=== PATIENT | female | born 1950 | race Caucasian/White ===

== ENCOUNTER 2018-12-27 20:07 | Emergency (ER) | payer MEDICARE, OTHER ==
--- NOTE | 2018-12-27 20:34 | EDM.PDOC ---
ED HPI GENERAL MEDICAL PROBLEM - General Chief Complaint: Genitourinary Problem Stated Complaint: BACK PAIN Time Seen by Provider: 12/27/18 20:20 Source of Information: Reports: Patient History Limitations: Reports: No Limitations - History of Present Illness INITIAL COMMENTS - FREE TEXT/NARRATIVE: Geovanna comes into [facility] with a 2 month hx of AAKASH and LLQ ain than seems to be progressing over the past 24 hrs. There is some nausea and multiple episodes of vomiting, but no urinary urgency or frequency, no dysuria or visible hematuria. She does have some residual incontinence following prior bladder surgeries. She was seen in fall, yesterday for an abdominal US of the L kidney, and informed the kidney was inflammed, no stones seen, and no meds dispensed. She has had UTIs in the past, but no reported stone disease. She has taken no meds. left flank Pain Score (Numeric/FACES): 8 - Related Data Allergies Allergy/AdvReac Type Severity Reaction Status Date / Time Penicillins Allergy Hives Verified 12/27/18 20:41 Home Meds: Home Meds Diltiazem [Diltiazem ER] 30 mg PO DAILY 12/27/18 [History] FLUoxetine [PROzac] 10 mg PO DAILY 12/27/18 [History] Fluticasone Propionate 2 sprays NS DAILY 12/27/18 [History] Losartan [Cozaar] 25 mg PO DAILY 12/27/18 [History] Lovastatin 20 mg PO DAILY 12/27/18 [History] Mirabegron [Myrbetriq] 50 mg PO DAILY 12/27/18 [History] Past Medical History Genitourinary History: Reports: UTI, Recurrent - Past Surgical History GI Surgical History: Reports: Bariatric Procedure ED ROS GENERAL - Review of Systems Review Of Systems: See Below Constitutional: Reports: No Symptoms HEENT: Reports: No Symptoms Respiratory: Reports: No Symptoms Cardiovascular: Reports: No Symptoms Endocrine: Reports: No Symptoms GI/Abdominal: Reports: Abdominal Pain (LUQ, LLQ ), Nausea : Reports: Incontinence Musculoskeletal: Reports: No Symptoms Skin: Reports: No Symptoms Neurological: Reports: No Symptoms Psychiatric: Reports: No Symptoms Hematologic/Lymphatic: Reports: No Symptoms Immunologic: Reports: No Symptoms ED EXAM, RENAL/ - Physical Exam Exam: See Below Exam Limited By: No Limitations General Appearance: Alert, WD/WN, Mild Distress, Obese Throat/Mouth: Normal Inspection, Normal Lips, Normal Teeth, Normal Gums, Normal Oropharynx, Normal Voice, No Airway Compromise Head: Normocephalic Neck: Normal Inspection, Supple, Non-Tender Respiratory/Chest: Lungs Clear, Normal Breath Sounds, Chest Non-Tender Cardiovascular: Regular Rate, Rhythm, No Murmur GI/Abdominal: Normal Bowel Sounds, Soft, No Organomegaly, No Distention, No Mass , Tender (LUQ<LLQ) (Female) Exam: Deferred Rectal (Female) Exam: Deferred Back Exam: Normal Inspection Extremities: Normal Inspection Neurological: Alert, Oriented, CN II-XII Intact, Normal Gait, No Motor/Sensory Deficits Psychiatric: Normal Affect, Normal Mood Skin Exam: Warm, Dry, Intact, Normal Color, No Rash Lymphatic: No Adenopathy Course - Vital Signs Text/Narrative:: Following assessment, screening labwork was nonspecific for current abdominal sxs. I proceeded with an Abd-Pelvic CT wo contrast: findings included a 6 mm opague stone at the UVJ, with some hydronephrosis and hydroureter present. Flomax 0.4 mg po was administered at time of discharge. Last Recorded V/S: Last Vital Signs Temp 36.6 C 12/27/18 20:35 Pulse 59 L 12/27/18 21:59 Resp 18 12/27/18 21:59 BP 182/80 H 12/27/18 21:59 Pulse Ox 94 L 12/27/18 21:59 - Orders/Labs/Meds Orders: Active Orders 24 hr Category Date Time Status Abdomen Pelvis wo Cont [CT] Stat Exams 12/27/18 22:27 Taken Tamsulosin [Flomax] Med 12/28/18 00:19 Once 0.4 mg PO ONETIME ONE Labs: Laboratory Tests 12/27/18 12/27/18 12/27/18 Range/Units 20:40 20:40 20:40 WBC 11.0 (4.5-12.0) X10-3/uL RBC 4.73 (3.23-5.20) x10(6)uL Hgb 14.3 (11.5-15.5) g/dL Hct 42.9 (30.0-51.3) % MCV 90.7 (80-96) fL MCH 30.2 (27.7-33.6) pg MCHC 33.3 (32.2-35.4) g/dL RDW 12.8 (11.5-15.5) % Plt Count 265 (125-369) X10(3)uL MPV 8.7 (7.4-10.4) fL Neut % (Auto) 86.6 H (46-82) % Lymph % (Auto) 8.8 L (13-37) % [place] % (Auto) 3.7 L (4-12) % Eos % (Auto) 0 L (1.0-5.0) % Baso % (Auto) 1 (0-2) % Neut # (Auto) 9.5 H (1.6-8.3) # Lymph # (Auto) 1.0 (0.6-5.0) # [place] # (Auto) 0.4 (0.0-1.3) # Eos # (Auto) 0.0 (0.0-0.8) # Baso # (Auto) 0.1 (0.0-0.2) # Sodium 141 (135-145) mmol/L Potassium 3.7 (3.5-5.3) mmol/L Chloride 104 (100-110) mmol/L Carbon Dioxide 29 (21-32) mmol/L BUN 13 (7-18) mg/dL Creatinine 0.9 (0.55-1.02) mg/dL Est Cr Clr Drug Dosing TNP Estimated GFR (MDRD) > 60 (>60) BUN/Creatinine Ratio 14.4 (9-20) Glucose 131 H (80-116) mg/dL Calcium 8.4 L (8.6-10.2) mg/dL C-Reactive Protein 0.2 L (0.5-0.9) mg/dL Urine Color (YELLOW) Urine Appearance (CLEAR) Urine pH (5.0-6.5) Ur Specific Turner (1.010-1.025) Urine Protein (NEGATIVE) mg/dL Urine Glucose (UA) (NORMAL) mg/dL Urine Ketones (NEGATIVE) mg/dL Urine Occult Blood (NEGATIVE) Urine Nitrite (NEGATIVE) Urine Bilirubin (NEGATIVE) Urine Urobilinogen (NEGATIVE) mg/dL Ur Leukocyte Esterase (NEGATIVE) Urine RBC (0-5) Urine WBC (0-5) Ur Squamous Epith Cells (NS,R,O) Amorphous Sediment Urine Bacteria (NS) 12/27/18 Range/Units 21:45 WBC (4.5-12.0) X10-3/uL RBC (3.23-5.20) x10(6)uL Hgb (11.5-15.5) g/dL Hct (30.0-51.3) % MCV (80-96) fL MCH (27.7-33.6) pg MCHC (32.2-35.4) g/dL RDW (11.5-15.5) % Plt Count (125-369) X10(3)uL MPV (7.4-10.4) fL Neut % (Auto) (46-82) % Lymph % (Auto) (13-37) % [place] % (Auto) (4-12) % Eos % (Auto) (1.0-5.0) % Baso % (Auto) (0-2) % Neut # (Auto) (1.6-8.3) # Lymph # (Auto) (0.6-5.0) # [place] # (Auto) (0.0-1.3) # Eos # (Auto) (0.0-0.8) # Baso # (Auto) (0.0-0.2) # Sodium (135-145) mmol/L Potassium (3.5-5.3) mmol/L Chloride (100-110) mmol/L Carbon Dioxide (21-32) mmol/L BUN (7-18) mg/dL Creatinine (0.55-1.02) mg/dL Est Cr Clr Drug Dosing Estimated GFR (MDRD) (>60) BUN/Creatinine Ratio (9-20) Glucose (80-116) mg/dL Calcium (8.6-10.2) mg/dL C-Reactive Protein (0.5-0.9) mg/dL Urine Color Yellow (YELLOW) Urine Appearance Slightly cloudy (CLEAR) Urine pH 7.0 H (5.0-6.5) Ur Specific Turner 1.010 (1.010-1.025) Urine Protein 30 H (NEGATIVE) mg/dL Urine Glucose (UA) Normal (NORMAL) mg/dL Urine Ketones Negative (NEGATIVE) mg/dL Urine Occult Blood Moderate H (NEGATIVE) Urine Nitrite Negative (NEGATIVE) Urine Bilirubin Negative (NEGATIVE) Urine Urobilinogen Normal (NEGATIVE) mg/dL Ur Leukocyte Esterase Negative (NEGATIVE) Urine RBC 5-10 H (0-5) Urine WBC 0-5 (0-5) Ur Squamous Epith Cells Few H (NS,R,O) Amorphous Sediment Moderate Urine Bacteria Few H (NS) Meds: Medications Discontinued Medications Generic Name Dose Route Start Last Admin Trade Name Freq PRN Reason Stop Dose Admin Fentanyl 50 mcg 12/27/18 20:43 12/27/18 20:48 Sublimaze IVPUSH 12/27/18 20:44 50 mcg ONETIME ONE Administration Fentanyl 50 mcg 12/27/18 22:05 12/27/18 22:12 Sublimaze IVPUSH 12/27/18 22:06 50 mcg ONETIME ONE Administration Ondansetron HCl 4 mg 12/27/18 20:44 12/27/18 20:49 Zofran IVPUSH 12/27/18 20:45 4 mg ONETIME ONE Administration Ondansetron HCl 4 mg 12/27/18 23:25 12/27/18 23:39 Zofran IVPUSH 12/27/18 23:26 4 mg ONETIME ONE Administration Departure - Departure Time of Disposition: 00:23 Disposition: Home, Self-Care 01 Condition: Fair Clinical Impression: Ureterolithiasis - Discharge Information *PRESCRIPTION DRUG MONITORING PROGRAM REVIEWED*: Not Applicable *COPY OF PRESCRIPTION DRUG MONITORING REPORT IN PATIENT MICKY: Not Applicable Referrals: Deepa Jeffries NP [Primary Care Provider] - Forms: ED Department Discharge - Problem List & Annotations (1) Ureterolithiasis SNOMED Code(s): 69779275 Code(s): N20.1 - CALCULUS OF URETER Status: Acute Current Visit: Yes Annotation/Comment:: Follow up with Urologist this week regarding managment. - Problem List Review Problem List Initiated/Reviewed/Updated: Yes - My Orders Last 24 Hours: My Active Orders 12/27/18 22:27 Abdomen Pelvis wo Cont [CT] Stat 12/28/18 00:19 Tamsulosin [Flomax] 0.4 mg PO ONETIME ONE - Assessment/Plan Last 24 Hours: My Active Orders 12/27/18 22:27 Abdomen Pelvis wo Cont [CT] Stat 12/28/18 00:19 Tamsulosin [Flomax] 0.4 mg PO ONETIME ONE Plan: Follow up with Urologist.
[2018-12-27] MEDS ORDERED: fentaNYL 100 MCG/2 ML SDV IVPUSH ONE ×2 (20:43→22:05)
[2018-12-27] MEDS ORDERED: Ondansetron 4 MG/2 ML SDV IVPUSH ONE ×2 (20:44→23:25)
[2018-12-28] MEDS ORDERED: Tamsulosin 0.4 MG Cap.ER PO ONE (00:19)
== END 2018-12-28 00:40 | disposition home or self-care (01) ==
LOC: FB.ED 20:07
DX: N13.2 Hydronephrosis with renal and ureteral calculous obstruction (principal); Z88.0 Allergy status to penicillin; Z79.899 Other long term (current) drug therapy
CPT/HCPCS: 36415; 74176; 80048; 81001; 85025; 86140; 96374; 96375; 96376; 99284; A9270; J2405; J3010